=== PATIENT | female | born 1955 | race Hispanic/Latino ===

== ENCOUNTER → 2017-08-24 | Outpatient (CLI) | payer OTHER, MEDICARE | END | disposition home or self-care (01) | LOC: RAH 10:38 | PROVIDERS: ATTEND Physical Medicine & Rehabilitation | DX: R60.0 Localized edema (principal) | CPT/HCPCS: 93971 ==

== ENCOUNTER → 2017-11-29 | Outpatient (CLI) | payer OTHER, MEDICARE | END | disposition home or self-care (01) | LOC: RAH 10:06 | PROVIDERS: ATTEND Family Medicine | DX: Z12.31 Encounter for screening mammogram for malignant neoplasm of breast (principal); I10 Essential (primary) hypertension; E11.9 Type 2 diabetes mellitus without complications; E78.5 Hyperlipidemia, unspecified | CPT/HCPCS: 77067 ==

== ENCOUNTER → 2018-03-25 | Outpatient (CLI) | payer OTHER, MEDICARE | END | disposition home or self-care (01) | LOC: RAH 16:26 | PROVIDERS: ATTEND Physical Medicine & Rehabilitation | DX: M19.041 Primary osteoarthritis, right hand (principal) | CPT/HCPCS: 73130 ==

== ENCOUNTER → 2019-02-01 | Outpatient (CLI) | payer OTHER, MEDICARE | END | disposition home or self-care (01) | LOC: RAH 01-18 13:18 | PROVIDERS: ATTEND Family Medicine | DX: Z12.31 Encounter for screening mammogram for malignant neoplasm of breast (principal) | CPT/HCPCS: 77067 ==

== ENCOUNTER → 2020-04-26 | Outpatient (CLI) | payer OTHER, MEDICARE | END | disposition home or self-care (01) | LOC: RAH 13:44 | PROVIDERS: ATTEND Family Medicine | DX: Z12.31 Encounter for screening mammogram for malignant neoplasm of breast (principal); N64.89 Other specified disorders of breast | CPT/HCPCS: 77067 ==

== ENCOUNTER → 2020-07-29 | Outpatient (CLI) | payer OTHER, MEDICARE | END | disposition home or self-care (01) | LOC: RAH 10:48 | PROVIDERS: ATTEND Family Medicine | DX: E11.22 Type 2 diabetes mellitus with diabetic chronic kidney disease (principal); N18.9 Chronic kidney disease, unspecified | CPT/HCPCS: 93922 ==

== ENCOUNTER → 2021-06-04 | Outpatient (CLI) | payer OTHER | END | disposition home or self-care (01) | LOC: RAH 14:51 | PROVIDERS: ATTEND Family Medicine | DX: Z12.31 Encounter for screening mammogram for malignant neoplasm of breast (principal) | CPT/HCPCS: 77067 ==

== ENCOUNTER → 2021-10-16 | Outpatient (CLI) | payer OTHER | END | disposition home or self-care (01) | LOC: SHCH 15:14 | PROVIDERS: ATTEND Internal Medicine Cardiovascular Disease | DX: I65.23 Occlusion and stenosis of bilateral carotid arteries (principal); I67.9 Cerebrovascular disease, unspecified; E66.9 Obesity, unspecified; R20.2 Paresthesia of skin; Z86.73 Personal history of transient ischemic attack (TIA), and cerebral infarction without residual deficits | CPT/HCPCS: 93880 ==

== ENCOUNTER → 2021-10-17 | Outpatient (CLI) | payer OTHER | END | disposition home or self-care (01) | LOC: SHCH 08:48 | PROVIDERS: ATTEND Internal Medicine Cardiovascular Disease | DX: I35.8 Other nonrheumatic aortic valve disorders (principal); I11.9 Hypertensive heart disease without heart failure; I67.9 Cerebrovascular disease, unspecified; E11.9 Type 2 diabetes mellitus without complications; E78.5 Hyperlipidemia, unspecified | CPT/HCPCS: 93306 ==

== ENCOUNTER → 2022-05-29 | Outpatient (CLI) | payer OTHER | END | disposition home or self-care (01) | LOC: RAH 13:17 | PROVIDERS: ATTEND Family Medicine | DX: S82.852A Displaced trimalleolar fracture of left lower leg, initial encounter for closed fracture (principal); X58.XXXA Exposure to other specified factors, initial encounter; Y93.89 Activity, other specified; Y92.89 Other specified places as the place of occurrence of the external cause; Y99.8 Other external cause status | CPT/HCPCS: 73590; 73600; 73620 ==

== ENCOUNTER → 2023-06-16 | Outpatient (CLI) | payer OTHER, MEDICARE | END | disposition home or self-care (01) | LOC: RAH 08:18 | PROVIDERS: ATTEND Family Medicine | DX: Z12.31 Encounter for screening mammogram for malignant neoplasm of breast (principal) | CPT/HCPCS: 77067 ==

== ENCOUNTER 2023-11-18 07:07 | Day surgery (SDC) | payer OTHER, MEDICARE ==
[~2023-11-18] VITALS: Ht 160 cm; Wt 70.8 kg
[2023-11-18] VITALS (11 sets, daily range): BP systolic 106–157; BP diastolic 57–75; PULSE 59–81; RESP 12–16; TEMP 96.6–98
[2023-11-18] MEDS: 0.9%NACL 1000ML 1,000 ML IV ONE (08:30)
[2023-11-18] MEDS ORDERED: AMLO-258 PO (08:32)
[2023-11-18] MEDS ORDERED: ESCI-8 PO (08:32)
[2023-11-18] MEDS ORDERED: INSLAN SQ (08:32)
[2023-11-18] MEDS ORDERED: ATOR40TA69 PO (08:32)
[2023-11-18] MEDS ORDERED: SEMA1PEN3 SQ (08:32)
[2023-11-18] MEDS ORDERED: FURO20TA4 PO (08:32)
[2023-11-18] MEDS ORDERED: LEVE750T66 PO (08:32)
[2023-11-18] MEDS ORDERED: DONE5TAB33 PO (08:32)
[2023-11-18] MEDS ORDERED: CLOP75TA32 PO (08:32)
[2023-11-18] MEDS ORDERED: MIRA50TA PO (08:32)
[2023-11-18] MEDS ORDERED: VITAMIN B12 PO (08:32)
[2023-11-18] MEDS ORDERED: AEC81 PO (08:32)
[2023-11-18] MEDS ORDERED: CHOL100046 PO (08:32)
[2023-11-18] MEDS ORDERED: proPOFol 10 MG/ML 20ML VIAL IV ONE (10:08)
[2023-11-18] MEDS ORDERED: LIDOCAINE HCL 400MG/20ML VIAL ONE (10:09)
== END 2023-11-18 11:40 | disposition home or self-care (01) ==
LOC: DAH 07:07 → ENDO 07:07
PROVIDERS: ATTEND Internal Medicine Gastroenterology
DX: Z12.11 Encounter for screening for malignant neoplasm of colon (principal); D12.0 Benign neoplasm of cecum; D12.8 Benign neoplasm of rectum; K57.30 Diverticulosis of large intestine without perforation or abscess without bleeding; I10 Essential (primary) hypertension; E78.5 Hyperlipidemia, unspecified; E11.9 Type 2 diabetes mellitus without complications; M81.0 Age-related osteoporosis without current pathological fracture; K21.9 Gastro-esophageal reflux disease without esophagitis; Z79.01 Long term (current) use of anticoagulants; Z86.73 Personal history of transient ischemic attack (TIA), and cerebral infarction without residual deficits; Z79.82 Long term (current) use of aspirin; Z79.4 Long term (current) use of insulin; Z98.890 Other specified postprocedural states; Z79.899 Other long term (current) drug therapy
CPT/HCPCS: 82948 ×2; 45380; 45385; J3490; J7030 ×2; J2704; A4620; A4649; A7002; 45382

== ENCOUNTER → 2024-11-15 | Outpatient (CLI) | payer OTHER, MEDICARE ==
[~2024-11-15] MED LIST: AEC81 PO; AMLO-258 PO; ATOR40TA69 PO; CHOL100046 PO; CLOP75TA32 PO; DONE5TAB33 PO; ESCI-8 PO; FURO20TA4 PO; INSLAN SQ; LEVE750T85 PO; MIRA50TA PO; SEMA1PEN3 SQ; VITAMIN B12 PO
== END | disposition home or self-care (01) ==
LOC: RAH 09:21
PROVIDERS: ATTEND Family Medicine
DX: Z12.31 Encounter for screening mammogram for malignant neoplasm of breast (principal)
CPT/HCPCS: 77067